=== PATIENT | female | born 1940 | race Hispanic/Latino ===

== ENCOUNTER → 2019-08-28 | Outpatient (CLI) | payer OTHER, MEDICARE ==
[~2019-08-28] MED LIST: AMLO10TA7 PO; ATOR20TA65 PO; GUAI-1211 PO; HONEY 1 APPL/ML TUBE TP ONE; METO100T14 PO; NAPR-1023 PO; SITA100T12 PO; VALS80TA30 PO; VIT D PO
[2019-08-28 16:32] VITALS: BP 132/51
[2019-08-28 16:44] LABS: CREATININE 2.4 mg/dL (0.5-1.5); CRP QUANTITATIVE 6.8 mg/L (0.00-9.0); POTASSIUM 4.6 mmol/L (3.5-5.1)
== END | disposition home or self-care (01) ==
LOC: WHH 13:14
PROVIDERS: ATTEND Family Medicine
DX: T81.31XA Disruption of external operation (surgical) wound, not elsewhere classified, initial encounter (principal); I25.10 Atherosclerotic heart disease of native coronary artery without angina pectoris; I10 Essential (primary) hypertension; E11.39 Type 2 diabetes mellitus with other diabetic ophthalmic complication; H42 Glaucoma in diseases classified elsewhere; E66.01 Morbid (severe) obesity due to excess calories; Z79.4 Long term (current) use of insulin; Y83.8 Other surgical procedures as the cause of abnormal reaction of the patient, or of later complication, without mention of misadventure at the time of the procedure; Y92.89 Other specified places as the place of occurrence of the external cause
CPT/HCPCS: 11042; 11045; 36415; 80048; 84134; 85651; 86140; 87070; 87077; 87186

== ENCOUNTER → 2019-09-04 | Outpatient (CLI) | payer OTHER, MEDICARE ==
[~2019-09-04] MED LIST changes: -HONEY 1 APPL/ML TUBE TP ONE; +LIDOCAINE HCL 4% LTA SOL 4 ML VIAL TP ONE
[2019-09-04 16:16] VITALS: BP 113/48
== END | disposition home or self-care (01) ==
LOC: WHH 14:00
PROVIDERS: ATTEND Family Medicine
DX: T81.31XD Disruption of external operation (surgical) wound, not elsewhere classified, subsequent encounter (principal); E11.39 Type 2 diabetes mellitus with other diabetic ophthalmic complication; H42 Glaucoma in diseases classified elsewhere; I25.10 Atherosclerotic heart disease of native coronary artery without angina pectoris; I10 Essential (primary) hypertension; E66.01 Morbid (severe) obesity due to excess calories; Z79.4 Long term (current) use of insulin; Y83.8 Other surgical procedures as the cause of abnormal reaction of the patient, or of later complication, without mention of misadventure at the time of the procedure
CPT/HCPCS: 11042; 11045

== ENCOUNTER → 2019-09-18 | Outpatient (CLI) | payer OTHER, MEDICARE ==
[~2019-09-18] MED LIST changes: +HONEY 1 APPL/ML TUBE TP ONE
[2019-09-18 15:25] VITALS: BP 142/89
== END | disposition home or self-care (01) ==
LOC: WHH 13:00
PROVIDERS: ATTEND Family Medicine
DX: T81.31XD Disruption of external operation (surgical) wound, not elsewhere classified, subsequent encounter (principal); E11.22 Type 2 diabetes mellitus with diabetic chronic kidney disease; I12.9 Hypertensive chronic kidney disease with stage 1 through stage 4 chronic kidney disease, or unspecified chronic kidney disease; N18.9 Chronic kidney disease, unspecified; E11.39 Type 2 diabetes mellitus with other diabetic ophthalmic complication; H42 Glaucoma in diseases classified elsewhere; I25.10 Atherosclerotic heart disease of native coronary artery without angina pectoris; E66.01 Morbid (severe) obesity due to excess calories; J90 Pleural effusion, not elsewhere classified; Z79.4 Long term (current) use of insulin; Y83.8 Other surgical procedures as the cause of abnormal reaction of the patient, or of later complication, without mention of misadventure at the time of the procedure
CPT/HCPCS: 11042; 11045

== ENCOUNTER → 2019-09-25 | Outpatient (CLI) | payer OTHER, MEDICARE ==
[~2019-09-25] MED LIST changes: +AMLO-258 PO; -AMLO10TA7 PO; -HONEY 1 APPL/ML TUBE TP ONE; +SILVER NITRATE APPLICATOR 1 SWAB TP ONE
[2019-09-25 15:13] VITALS: BP 92/46
== END | disposition home or self-care (01) ==
LOC: WHH 13:00
PROVIDERS: ATTEND Family Medicine
DX: T81.31XD Disruption of external operation (surgical) wound, not elsewhere classified, subsequent encounter (principal); E11.22 Type 2 diabetes mellitus with diabetic chronic kidney disease; I13.0 Hypertensive heart and chronic kidney disease with heart failure and stage 1 through stage 4 chronic kidney disease, or unspecified chronic kidney disease; N18.9 Chronic kidney disease, unspecified; I50.9 Heart failure, unspecified; E11.39 Type 2 diabetes mellitus with other diabetic ophthalmic complication; H42 Glaucoma in diseases classified elsewhere; E11.51 Type 2 diabetes mellitus with diabetic peripheral angiopathy without gangrene; E66.01 Morbid (severe) obesity due to excess calories; I25.10 Atherosclerotic heart disease of native coronary artery without angina pectoris; J90 Pleural effusion, not elsewhere classified; N39.0 Urinary tract infection, site not specified; Z79.4 Long term (current) use of insulin; Y83.8 Other surgical procedures as the cause of abnormal reaction of the patient, or of later complication, without mention of misadventure at the time of the procedure
CPT/HCPCS: 11042; 11045; 71046; 97605

== ENCOUNTER → 2019-10-09 | Outpatient (CLI) | payer OTHER, MEDICARE ==
[~2019-10-09] MED LIST changes: -SILVER NITRATE APPLICATOR 1 SWAB TP ONE
[2019-10-09 15:45] VITALS: BP 125/72
== END | disposition home or self-care (01) ==
LOC: WHH 13:00
PROVIDERS: ATTEND Family Medicine
DX: T81.31XD Disruption of external operation (surgical) wound, not elsewhere classified, subsequent encounter (principal); E11.22 Type 2 diabetes mellitus with diabetic chronic kidney disease; I13.0 Hypertensive heart and chronic kidney disease with heart failure and stage 1 through stage 4 chronic kidney disease, or unspecified chronic kidney disease; N18.9 Chronic kidney disease, unspecified; I50.9 Heart failure, unspecified; E11.39 Type 2 diabetes mellitus with other diabetic ophthalmic complication; H42 Glaucoma in diseases classified elsewhere; E11.51 Type 2 diabetes mellitus with diabetic peripheral angiopathy without gangrene; E66.01 Morbid (severe) obesity due to excess calories; I25.10 Atherosclerotic heart disease of native coronary artery without angina pectoris; J90 Pleural effusion, not elsewhere classified; N39.0 Urinary tract infection, site not specified; Z79.4 Long term (current) use of insulin; Y83.8 Other surgical procedures as the cause of abnormal reaction of the patient, or of later complication, without mention of misadventure at the time of the procedure
CPT/HCPCS: 11042; 11045; 97605

== ENCOUNTER → 2019-10-16 | Outpatient (CLI) | payer OTHER, MEDICARE ==
[~2019-10-16] MED LIST changes: -AMLO-258 PO; +AMLO10TA7 PO; -LIDOCAINE HCL 4% LTA SOL 4 ML VIAL TP ONE
[2019-10-16 15:26] VITALS: BP 110/48
== END | disposition home or self-care (01) ==
LOC: WHH 13:00
PROVIDERS: ATTEND Family Medicine
DX: T81.31XD Disruption of external operation (surgical) wound, not elsewhere classified, subsequent encounter (principal); E11.22 Type 2 diabetes mellitus with diabetic chronic kidney disease; I13.0 Hypertensive heart and chronic kidney disease with heart failure and stage 1 through stage 4 chronic kidney disease, or unspecified chronic kidney disease; N18.9 Chronic kidney disease, unspecified; I50.9 Heart failure, unspecified; E11.39 Type 2 diabetes mellitus with other diabetic ophthalmic complication; H42 Glaucoma in diseases classified elsewhere; E11.51 Type 2 diabetes mellitus with diabetic peripheral angiopathy without gangrene; I25.10 Atherosclerotic heart disease of native coronary artery without angina pectoris; E66.01 Morbid (severe) obesity due to excess calories; Z79.4 Long term (current) use of insulin; Y83.8 Other surgical procedures as the cause of abnormal reaction of the patient, or of later complication, without mention of misadventure at the time of the procedure
CPT/HCPCS: 11042; 11045; 97605

== ENCOUNTER → 2019-10-23 | Outpatient (CLI) | payer OTHER, MEDICARE ==
[~2019-10-23] MED LIST changes: +LIDOCAINE HCL 4% LTA SOL 4 ML VIAL TP ONE
[2019-10-23 15:06] VITALS: BP 118/63
== END | disposition home or self-care (01) ==
LOC: WHH 13:00
PROVIDERS: ATTEND Family Medicine
DX: T81.31XD Disruption of external operation (surgical) wound, not elsewhere classified, subsequent encounter (principal); E11.22 Type 2 diabetes mellitus with diabetic chronic kidney disease; I13.0 Hypertensive heart and chronic kidney disease with heart failure and stage 1 through stage 4 chronic kidney disease, or unspecified chronic kidney disease; N18.9 Chronic kidney disease, unspecified; I50.9 Heart failure, unspecified; E11.39 Type 2 diabetes mellitus with other diabetic ophthalmic complication; H42 Glaucoma in diseases classified elsewhere; E11.51 Type 2 diabetes mellitus with diabetic peripheral angiopathy without gangrene; I25.10 Atherosclerotic heart disease of native coronary artery without angina pectoris; E66.01 Morbid (severe) obesity due to excess calories; J90 Pleural effusion, not elsewhere classified; Z79.4 Long term (current) use of insulin; Y83.8 Other surgical procedures as the cause of abnormal reaction of the patient, or of later complication, without mention of misadventure at the time of the procedure
CPT/HCPCS: 11042; 11045; 97605

== ENCOUNTER → 2019-11-06 | Outpatient (CLI) | payer OTHER, MEDICARE ==
[~2019-11-06] MED LIST changes: +AMLO-258 PO; -AMLO10TA7 PO
[2019-11-06 15:13] VITALS: BP 113/57
== END | disposition home or self-care (01) ==
LOC: WHH 13:00
PROVIDERS: ATTEND Family Medicine
DX: T81.89XD Other complications of procedures, not elsewhere classified, subsequent encounter (principal); E11.22 Type 2 diabetes mellitus with diabetic chronic kidney disease; I13.0 Hypertensive heart and chronic kidney disease with heart failure and stage 1 through stage 4 chronic kidney disease, or unspecified chronic kidney disease; N18.9 Chronic kidney disease, unspecified; I50.9 Heart failure, unspecified; E11.39 Type 2 diabetes mellitus with other diabetic ophthalmic complication; H42 Glaucoma in diseases classified elsewhere; E11.51 Type 2 diabetes mellitus with diabetic peripheral angiopathy without gangrene; I25.10 Atherosclerotic heart disease of native coronary artery without angina pectoris; E66.01 Morbid (severe) obesity due to excess calories; Z79.4 Long term (current) use of insulin; Y83.8 Other surgical procedures as the cause of abnormal reaction of the patient, or of later complication, without mention of misadventure at the time of the procedure
CPT/HCPCS: 11042; 11045; 97605

== ENCOUNTER → 2019-11-20 | Outpatient (CLI) | payer OTHER, MEDICARE ==
[~2019-11-20] MED LIST changes: -AMLO-258 PO; +AMLO10TA7 PO; -LIDOCAINE HCL 4% LTA SOL 4 ML VIAL TP ONE
[2019-11-20 16:39] VITALS: BP 131/52
== END | disposition home or self-care (01) ==
LOC: WHH 13:00
PROVIDERS: ATTEND Family Medicine
DX: T81.89XD Other complications of procedures, not elsewhere classified, subsequent encounter (principal); E11.22 Type 2 diabetes mellitus with diabetic chronic kidney disease; I13.0 Hypertensive heart and chronic kidney disease with heart failure and stage 1 through stage 4 chronic kidney disease, or unspecified chronic kidney disease; N18.9 Chronic kidney disease, unspecified; I50.9 Heart failure, unspecified; E11.39 Type 2 diabetes mellitus with other diabetic ophthalmic complication; H42 Glaucoma in diseases classified elsewhere; E11.51 Type 2 diabetes mellitus with diabetic peripheral angiopathy without gangrene; I25.10 Atherosclerotic heart disease of native coronary artery without angina pectoris; E66.01 Morbid (severe) obesity due to excess calories; Z79.4 Long term (current) use of insulin; Y83.8 Other surgical procedures as the cause of abnormal reaction of the patient, or of later complication, without mention of misadventure at the time of the procedure
CPT/HCPCS: 11042; 97605

== ENCOUNTER → 2019-11-23 | Outpatient (CLI) | payer OTHER, MEDICARE | END | disposition home or self-care (01) | LOC: WHH 10:39 | PROVIDERS: ATTEND Family Medicine | DX: T81.89XD Other complications of procedures, not elsewhere classified, subsequent encounter (principal); E11.22 Type 2 diabetes mellitus with diabetic chronic kidney disease; I13.0 Hypertensive heart and chronic kidney disease with heart failure and stage 1 through stage 4 chronic kidney disease, or unspecified chronic kidney disease; N18.9 Chronic kidney disease, unspecified; I50.9 Heart failure, unspecified; E11.39 Type 2 diabetes mellitus with other diabetic ophthalmic complication; H42 Glaucoma in diseases classified elsewhere; E11.51 Type 2 diabetes mellitus with diabetic peripheral angiopathy without gangrene; I25.10 Atherosclerotic heart disease of native coronary artery without angina pectoris; E66.01 Morbid (severe) obesity due to excess calories; Z79.4 Long term (current) use of insulin; Y83.8 Other surgical procedures as the cause of abnormal reaction of the patient, or of later complication, without mention of misadventure at the time of the procedure | CPT/HCPCS: 97605; G0463 ==

== ENCOUNTER → 2019-11-27 | Outpatient (CLI) | payer OTHER, MEDICARE ==
[~2019-11-27] MED LIST changes: +AMLO-258 PO; -AMLO10TA7 PO
[2019-11-27 16:30] VITALS: BP 131/45
== END | disposition home or self-care (01) ==
LOC: WHH 13:45
PROVIDERS: ATTEND Family Medicine
DX: T81.31XD Disruption of external operation (surgical) wound, not elsewhere classified, subsequent encounter (principal); E11.22 Type 2 diabetes mellitus with diabetic chronic kidney disease; I13.0 Hypertensive heart and chronic kidney disease with heart failure and stage 1 through stage 4 chronic kidney disease, or unspecified chronic kidney disease; N18.9 Chronic kidney disease, unspecified; I50.9 Heart failure, unspecified; E11.51 Type 2 diabetes mellitus with diabetic peripheral angiopathy without gangrene; E11.36 Type 2 diabetes mellitus with diabetic cataract; I25.10 Atherosclerotic heart disease of native coronary artery without angina pectoris; E66.01 Morbid (severe) obesity due to excess calories; J90 Pleural effusion, not elsewhere classified; Z79.4 Long term (current) use of insulin; Y83.8 Other surgical procedures as the cause of abnormal reaction of the patient, or of later complication, without mention of misadventure at the time of the procedure
CPT/HCPCS: 15271; 82948; A6197; A6207; Q4133 ×2

== ENCOUNTER → 2019-11-28 | Outpatient (CLI) | payer OTHER, MEDICARE | END | disposition home or self-care (01) | LOC: RAH 12:26 | PROVIDERS: ATTEND Thoracic Surgery (Cardiothoracic Vascular Surgery) | DX: T81.32XA Disruption of internal operation (surgical) wound, not elsewhere classified, initial encounter (principal); I25.10 Atherosclerotic heart disease of native coronary artery without angina pectoris; J90 Pleural effusion, not elsewhere classified; J98.11 Atelectasis; I35.8 Other nonrheumatic aortic valve disorders; R60.9 Edema, unspecified; K80.20 Calculus of gallbladder without cholecystitis without obstruction; D73.89 Other diseases of spleen; J98.51 Mediastinitis; D71 Functional disorders of polymorphonuclear neutrophils; X58.XXXA Exposure to other specified factors, initial encounter; Y93.89 Activity, other specified; Y92.89 Other specified places as the place of occurrence of the external cause; Y99.8 Other external cause status | CPT/HCPCS: 71250 ==

== ENCOUNTER → 2019-12-04 | Outpatient (CLI) | payer OTHER, MEDICARE ==
[2019-12-04 16:00] VITALS: BP 124/41
== END | disposition home or self-care (01) ==
LOC: WHH 13:30
PROVIDERS: ATTEND Family Medicine
DX: T81.31XD Disruption of external operation (surgical) wound, not elsewhere classified, subsequent encounter (principal); E11.22 Type 2 diabetes mellitus with diabetic chronic kidney disease; I13.0 Hypertensive heart and chronic kidney disease with heart failure and stage 1 through stage 4 chronic kidney disease, or unspecified chronic kidney disease; N18.9 Chronic kidney disease, unspecified; I50.9 Heart failure, unspecified; E11.51 Type 2 diabetes mellitus with diabetic peripheral angiopathy without gangrene; E11.36 Type 2 diabetes mellitus with diabetic cataract; I25.10 Atherosclerotic heart disease of native coronary artery without angina pectoris; J90 Pleural effusion, not elsewhere classified; Z79.4 Long term (current) use of insulin; Y83.8 Other surgical procedures as the cause of abnormal reaction of the patient, or of later complication, without mention of misadventure at the time of the procedure
CPT/HCPCS: 15271; A6197; A6207; Q4133

== ENCOUNTER → 2019-12-11 | Outpatient (CLI) | payer OTHER, MEDICARE ==
[2019-12-11 14:32] VITALS: BP 114/42; PULSE 52; RESP 18; TEMP 98.2
== END | disposition home or self-care (01) ==
LOC: WHH 13:00
PROVIDERS: ATTEND Family Medicine
DX: T81.31XD Disruption of external operation (surgical) wound, not elsewhere classified, subsequent encounter (principal); E11.22 Type 2 diabetes mellitus with diabetic chronic kidney disease; I13.0 Hypertensive heart and chronic kidney disease with heart failure and stage 1 through stage 4 chronic kidney disease, or unspecified chronic kidney disease; N18.9 Chronic kidney disease, unspecified; I50.9 Heart failure, unspecified; E11.39 Type 2 diabetes mellitus with other diabetic ophthalmic complication; H42 Glaucoma in diseases classified elsewhere; E11.51 Type 2 diabetes mellitus with diabetic peripheral angiopathy without gangrene; I25.10 Atherosclerotic heart disease of native coronary artery without angina pectoris; E66.01 Morbid (severe) obesity due to excess calories; Z79.4 Long term (current) use of insulin; Y83.8 Other surgical procedures as the cause of abnormal reaction of the patient, or of later complication, without mention of misadventure at the time of the procedure
CPT/HCPCS: 11042; A6197

== ENCOUNTER → 2019-12-18 | Outpatient (CLI) | payer OTHER, MEDICARE | END | disposition home or self-care (01) | LOC: WHH 13:00 | PROVIDERS: ATTEND Family Medicine | DX: T86.828 Other complications of skin graft (allograft) (autograft) (principal); E11.22 Type 2 diabetes mellitus with diabetic chronic kidney disease; I13.0 Hypertensive heart and chronic kidney disease with heart failure and stage 1 through stage 4 chronic kidney disease, or unspecified chronic kidney disease; N18.9 Chronic kidney disease, unspecified; I50.9 Heart failure, unspecified; E11.39 Type 2 diabetes mellitus with other diabetic ophthalmic complication; H42 Glaucoma in diseases classified elsewhere; E11.51 Type 2 diabetes mellitus with diabetic peripheral angiopathy without gangrene; I25.10 Atherosclerotic heart disease of native coronary artery without angina pectoris; E66.01 Morbid (severe) obesity due to excess calories; J90 Pleural effusion, not elsewhere classified; Z68.41 Body mass index [BMI] 40.0-44.9, adult; Z79.4 Long term (current) use of insulin; Z95.1 Presence of aortocoronary bypass graft; Y83.2 Surgical operation with anastomosis, bypass or graft as the cause of abnormal reaction of the patient, or of later complication, without mention of misadventure at the time of the procedure | CPT/HCPCS: 15271; A6197; A6207; Q4133 ==

== ENCOUNTER → 2019-12-25 | Outpatient (CLI) | payer OTHER, MEDICARE ==
[~2019-12-25] MED LIST changes: +LIDOCAINE HCL 4% LTA SOL 4 ML VIAL TP ONE
== END | disposition home or self-care (01) ==
LOC: WHH 13:10
PROVIDERS: ATTEND Family Medicine
DX: T86.828 Other complications of skin graft (allograft) (autograft) (principal); E11.22 Type 2 diabetes mellitus with diabetic chronic kidney disease; I13.0 Hypertensive heart and chronic kidney disease with heart failure and stage 1 through stage 4 chronic kidney disease, or unspecified chronic kidney disease; N18.9 Chronic kidney disease, unspecified; I50.9 Heart failure, unspecified; E11.39 Type 2 diabetes mellitus with other diabetic ophthalmic complication; H42 Glaucoma in diseases classified elsewhere; E11.51 Type 2 diabetes mellitus with diabetic peripheral angiopathy without gangrene; E11.36 Type 2 diabetes mellitus with diabetic cataract; H26.9 Unspecified cataract; I25.10 Atherosclerotic heart disease of native coronary artery without angina pectoris; E66.01 Morbid (severe) obesity due to excess calories; Z68.41 Body mass index [BMI] 40.0-44.9, adult; Z79.4 Long term (current) use of insulin; Z95.1 Presence of aortocoronary bypass graft; Y83.2 Surgical operation with anastomosis, bypass or graft as the cause of abnormal reaction of the patient, or of later complication, without mention of misadventure at the time of the procedure
CPT/HCPCS: 15271; A6197; A6207; Q4133

== ENCOUNTER → 2020-01-01 | Outpatient (CLI) | payer OTHER, MEDICARE ==
[~2020-01-01] MED LIST changes: -AMLO-258 PO; +AMLO10TA7 PO
== END | disposition home or self-care (01) ==
LOC: WHH 13:00
PROVIDERS: ATTEND Family Medicine
DX: T86.828 Other complications of skin graft (allograft) (autograft) (principal); E11.22 Type 2 diabetes mellitus with diabetic chronic kidney disease; I13.0 Hypertensive heart and chronic kidney disease with heart failure and stage 1 through stage 4 chronic kidney disease, or unspecified chronic kidney disease; N18.9 Chronic kidney disease, unspecified; I50.9 Heart failure, unspecified; E11.39 Type 2 diabetes mellitus with other diabetic ophthalmic complication; H42 Glaucoma in diseases classified elsewhere; E11.51 Type 2 diabetes mellitus with diabetic peripheral angiopathy without gangrene; E11.36 Type 2 diabetes mellitus with diabetic cataract; H26.9 Unspecified cataract; I25.10 Atherosclerotic heart disease of native coronary artery without angina pectoris; E66.01 Morbid (severe) obesity due to excess calories; Z68.41 Body mass index [BMI] 40.0-44.9, adult; Z79.4 Long term (current) use of insulin; Z95.1 Presence of aortocoronary bypass graft; Y83.2 Surgical operation with anastomosis, bypass or graft as the cause of abnormal reaction of the patient, or of later complication, without mention of misadventure at the time of the procedure
CPT/HCPCS: 15271; A6196; A6207; Q4133

== ENCOUNTER → 2020-01-08 | Outpatient (CLI) | payer OTHER, MEDICARE | END | disposition home or self-care (01) | LOC: WHH 13:00 | PROVIDERS: ATTEND Family Medicine | DX: T86.828 Other complications of skin graft (allograft) (autograft) (principal); E11.22 Type 2 diabetes mellitus with diabetic chronic kidney disease; I13.0 Hypertensive heart and chronic kidney disease with heart failure and stage 1 through stage 4 chronic kidney disease, or unspecified chronic kidney disease; N18.9 Chronic kidney disease, unspecified; I50.9 Heart failure, unspecified; E11.39 Type 2 diabetes mellitus with other diabetic ophthalmic complication; H42 Glaucoma in diseases classified elsewhere; E11.51 Type 2 diabetes mellitus with diabetic peripheral angiopathy without gangrene; E11.36 Type 2 diabetes mellitus with diabetic cataract; H26.9 Unspecified cataract; I25.10 Atherosclerotic heart disease of native coronary artery without angina pectoris; E66.01 Morbid (severe) obesity due to excess calories; Z68.41 Body mass index [BMI] 40.0-44.9, adult; Z79.4 Long term (current) use of insulin; Z95.1 Presence of aortocoronary bypass graft; Y83.2 Surgical operation with anastomosis, bypass or graft as the cause of abnormal reaction of the patient, or of later complication, without mention of misadventure at the time of the procedure | CPT/HCPCS: 15271; A6196; A6207; Q4133 ==

== ENCOUNTER → 2020-01-15 | Outpatient (CLI) | payer OTHER, MEDICARE | END | disposition home or self-care (01) | LOC: WHH 13:00 | PROVIDERS: ATTEND Family Medicine | DX: T81.31XD Disruption of external operation (surgical) wound, not elsewhere classified, subsequent encounter (principal); E11.22 Type 2 diabetes mellitus with diabetic chronic kidney disease; I13.0 Hypertensive heart and chronic kidney disease with heart failure and stage 1 through stage 4 chronic kidney disease, or unspecified chronic kidney disease; N18.9 Chronic kidney disease, unspecified; I50.9 Heart failure, unspecified; E11.39 Type 2 diabetes mellitus with other diabetic ophthalmic complication; H42 Glaucoma in diseases classified elsewhere; E11.51 Type 2 diabetes mellitus with diabetic peripheral angiopathy without gangrene; E11.36 Type 2 diabetes mellitus with diabetic cataract; H26.9 Unspecified cataract; I25.10 Atherosclerotic heart disease of native coronary artery without angina pectoris; E66.01 Morbid (severe) obesity due to excess calories; Z68.41 Body mass index [BMI] 40.0-44.9, adult; Z79.4 Long term (current) use of insulin; Z95.1 Presence of aortocoronary bypass graft; Y83.8 Other surgical procedures as the cause of abnormal reaction of the patient, or of later complication, without mention of misadventure at the time of the procedure | CPT/HCPCS: A6209; G0463 ==

== ENCOUNTER 2020-01-29 13:00 | Outpatient (CLI) | payer OTHER, MEDICARE ==
[~2020-01-29 13:00] MED LIST changes: -LIDOCAINE HCL 4% LTA SOL 4 ML VIAL TP ONE
== END 2020-01-29 13:59 | disposition home or self-care (01) ==
LOC: WHH 13:00
PROVIDERS: ATTEND Family Medicine
DX: T81.31XD Disruption of external operation (surgical) wound, not elsewhere classified, subsequent encounter (principal); E11.22 Type 2 diabetes mellitus with diabetic chronic kidney disease; I13.0 Hypertensive heart and chronic kidney disease with heart failure and stage 1 through stage 4 chronic kidney disease, or unspecified chronic kidney disease; N18.9 Chronic kidney disease, unspecified; I50.9 Heart failure, unspecified; E11.39 Type 2 diabetes mellitus with other diabetic ophthalmic complication; H42 Glaucoma in diseases classified elsewhere; E11.51 Type 2 diabetes mellitus with diabetic peripheral angiopathy without gangrene; E11.36 Type 2 diabetes mellitus with diabetic cataract; H26.9 Unspecified cataract; I25.10 Atherosclerotic heart disease of native coronary artery without angina pectoris; E66.01 Morbid (severe) obesity due to excess calories; Z68.41 Body mass index [BMI] 40.0-44.9, adult; Z79.4 Long term (current) use of insulin; Z95.1 Presence of aortocoronary bypass graft; Y83.8 Other surgical procedures as the cause of abnormal reaction of the patient, or of later complication, without mention of misadventure at the time of the procedure
CPT/HCPCS: G0463

== ENCOUNTER → 2020-02-06 | Outpatient (CLI) | payer OTHER, MEDICARE | END | disposition home or self-care (01) | LOC: RAH 12:56 | PROVIDERS: ATTEND Thoracic Surgery (Cardiothoracic Vascular Surgery) | DX: T81.32XD Disruption of internal operation (surgical) wound, not elsewhere classified, subsequent encounter (principal); J90 Pleural effusion, not elsewhere classified; J98.11 Atelectasis; M47.814 Spondylosis without myelopathy or radiculopathy, thoracic region; K80.20 Calculus of gallbladder without cholecystitis without obstruction; Z95.1 Presence of aortocoronary bypass graft | CPT/HCPCS: 71250 ==

== ENCOUNTER 2021-05-05 13:40 | Inpatient (IN) | payer OTHER, MEDICARE ==
[~2021-05-05] VITALS: Ht 154.9 cm; Wt 95.3 kg
[~2021-05-05 13:40] MED LIST changes: +AMLO-258 PO; -AMLO10TA7 PO
[2021-05-05] MEDS ORDERED: KCL 20 MEQ ERTAB PO PRN (14:30)
[2021-05-05] MEDS ORDERED: DEXTROSE 50%-WATER 50 ML DISP.SYRIN IV PRN (14:30)
[2021-05-05] MEDS ORDERED: GLUCAGON 1MG KIT 1 MG ML IM PRN (14:30)
[2021-05-05] MEDS ORDERED: LIDOCAINE HCL-MPF 1% 2ML VIAL IJ PRN (14:30)
[2021-05-05] MEDS ORDERED: POTASSIUM CHLORIDE 10% ELIXIR 20 MEQ/15 ML UDCUP PO PRN (14:30)
[2021-05-05] MEDS ORDERED: POTASSIUM CHLORIDE 20MEQ/100ML 100 ML IV PRN (14:30)
[2021-05-05] MEDS ORDERED: DiphenhydrAMINE HCL 50 MG/ML VIAL IV PRN (15:30)
[2021-05-05] MEDS ORDERED: NITROGLYCERIN 0.4 MG SL TAB SL PRN (15:30)
[2021-05-05] MEDS ORDERED: HYDRALAZINE 20MG/ML VIAL IV PRN (15:30)
[2021-05-05] MEDS ORDERED: ONDANSETRON 4MG INJ IV PRN (15:30)
[2021-05-05 16:57] LABS: BASOPHILS % (AUTO) 0.5 % (0.0-5.0); EOSINOPHILS % (AUTO) 2.6 % (0.0-8.0); HEMATOCRIT 39.5 % (36-48); LYMPHOCYTES % (AUTO) 18.7 % (21.0-51.0); MEAN CORPUSCULAR HEMOGLOBIN 28.7 pg (27.0-33.0); MEAN CORPUSCULAR HGB CONC 31.1 g/dL (32.0-36.0); MEAN CORPUSCULAR VOLUME 92.3 fL (79-99); MONOCYTES % (AUTO) 7.9 % (3.0-13.0); NEUTROPHILS % (AUTO) 70.1 % (40.0-77.0); PLATELET COUNT (AUTO) 178 K/uL (130-400); RED BLOOD CELL COUNT(AUTO) 4.28 MIL/uL (4.00-5.50); RED CELL DISTRIBUTION WIDTH 14.1 % (11.0-15.5); WHITE BLOOD COUNT (AUTO) 9.3 K/uL (4.8-10.8)
[2021-05-05] MEDS: INSULIN HUMULIN R 100 UNIT/ML 3ML SQ SCH (17:00)
[2021-05-05] MEDS: LACTATED RINGERS 1000ML 1,000 ML IV SCH (17:09)
[2021-05-05] MEDS: FAMOTIDINE 20MG VIAL IV SCH (17:09)
[2021-05-05 17:10] LABS: INR 1.17 (0.85-1.15); PROTHROMBIN TIME 12.6 SEC (9.6-11.6)
[2021-05-05 17:12] LABS: CREATININE 1.5 mg/dL (0.5-1.5)
[2021-05-05 17:14] LABS: ALBUMIN 3.3 g/dL (3.5-5.0); BILIRUBIN,TOTAL 0.5 mg/dL (0.2-1.0)
[2021-05-05] MEDS ORDERED: TORS20TA4 PO (17:42)
[2021-05-05] MEDS ORDERED: APIX5TAB PO (17:49)
[2021-05-05] MEDS ORDERED: VITAD50000 PO (17:49)
[2021-05-05] MEDS ORDERED: LATA2.5D14 OP (17:49)
[2021-05-05] MEDS ORDERED: ATOR20TA65 PO (17:49)
[2021-05-05] MEDS ORDERED: METO100T14 PO (17:49)
[2021-05-05] MEDS ORDERED: OLME20TA22 PO (17:49)
[2021-05-05] MEDS ORDERED: BRIM5DRO OP (17:49)
[2021-05-05] MEDS ORDERED: POTA-202 PO (17:49)
[2021-05-05] MEDS ORDERED: SERT-439 PO (17:49)
[2021-05-05] MEDS: INSULIN R NPO SSI SQ SCH (18:00)
[2021-05-05] MEDS ORDERED: NICARDIPINE 25MG INJ 25 MG in 0.9% NACL 250ML 240 ML IV SCH (18:30)
[2021-05-05] MEDS ORDERED: ACETAMINOPHEN 325 MG TAB PO PRN ×2 (21:30)
[2021-05-06] MEDS: LACTATED RINGERS 1000ML 1,000 ML IV SCH (05:52)
[2021-05-06 05:56] LABS: HEMATOCRIT 37.7 % (36-48); MEAN CORPUSCULAR HEMOGLOBIN 28.6 pg (27.0-33.0); MEAN CORPUSCULAR HGB CONC 30.8 g/dL (32.0-36.0); MEAN CORPUSCULAR VOLUME 92.9 fL (79-99); PLATELET COUNT (AUTO) 178 K/uL (130-400); RED BLOOD CELL COUNT(AUTO) 4.06 MIL/uL (4.00-5.50); RED CELL DISTRIBUTION WIDTH 14.2 % (11.0-15.5); WHITE BLOOD COUNT (AUTO) 8.8 K/uL (4.8-10.8)
[2021-05-06] MEDS: INSULIN R NPO SSI SQ SCH ×4 (06:00→18:00)
[2021-05-06 06:17] LABS: ALBUMIN 2.9 g/dL (3.5-5.0); BILIRUBIN,TOTAL 0.7 mg/dL (0.2-1.0); CREATININE 1.2 mg/dL (0.5-1.5); POTASSIUM 5.7 mmol/L (3.5-5.1); TOTAL PROTEIN, SERUM 8.2 g/dL (6.0-8.3)
[2021-05-06] MEDS: INSULIN HUMULIN R 100 UNIT/ML 3ML SQ SCH ×3 (06:26→17:00)
[2021-05-06] MEDS: FAMOTIDINE 20MG VIAL IV SCH (09:00)
[2021-05-06] MEDS ORDERED: LIDOCAINE HCL 400MG/20ML VIAL ONE (13:56)
[2021-05-06] MEDS ORDERED: SODIUM BICARB 50MEQ 50ML VIAL 50 ML ONE (14:03)
[2021-05-06 16:00] VITALS: BP 129/45
== END 2021-05-06 18:58 | disposition home or self-care (01) | DRG 641 ==
LOC: EDH 13:40 → EDHIP 13:41
PROVIDERS: ADMIT Internal Medicine; ATTEND Internal Medicine
PROC: 4A023N6 Measurement of Cardiac Sampling and Pressure, Right Heart, Percutaneous Approach (ICD-10-PCS; principal; 2021-05-06)
PROC: B2141ZZ Fluoroscopy of Right Heart using Low Osmolar Contrast (ICD-10-PCS; 2021-05-06)
DX: E86.0 Dehydration (principal); I50.32 Chronic diastolic (congestive) heart failure; I13.0 Hypertensive heart and chronic kidney disease with heart failure and stage 1 through stage 4 chronic kidney disease, or unspecified chronic kidney disease; I27.20 Pulmonary hypertension, unspecified; I95.1 Orthostatic hypotension; I48.0 Paroxysmal atrial fibrillation; E87.5 Hyperkalemia; Z20.822 Contact with and (suspected) exposure to COVID-19; E78.5 Hyperlipidemia, unspecified; M81.0 Age-related osteoporosis without current pathological fracture; N18.9 Chronic kidney disease, unspecified; E86.1 Hypovolemia; R29.6 Repeated falls; I25.10 Atherosclerotic heart disease of native coronary artery without angina pectoris; E11.22 Type 2 diabetes mellitus with diabetic chronic kidney disease; E66.9 Obesity, unspecified; Z96.653 Presence of artificial knee joint, bilateral; W19.XXXA Unspecified fall, initial encounter; Y93.89 Activity, other specified; Y92.89 Other specified places as the place of occurrence of the external cause; Y99.8 Other external cause status; Z68.39 Body mass index [BMI] 39.0-39.9, adult; Z95.1 Presence of aortocoronary bypass graft; Z79.01 Long term (current) use of anticoagulants; Z90.710 Acquired absence of both cervix and uterus; Z83.3 Family history of diabetes mellitus; Z82.49 Family history of ischemic heart disease and other diseases of the circulatory system
CPT/HCPCS: 36415; 70450; 71045; 80053; 82550; 82948; 83874; 84484; 85025; 85027; 85610; 85730; 87635; 93005; 93451; C1894; G0378; J0360; J1644; J2405; J3490; J7050; J7120

== ENCOUNTER → 2021-10-16 | Outpatient (CLI) | payer OTHER, MEDICARE ==
[~2021-10-16] MED LIST changes: -AMLO-258 PO; +APIX5TAB PO; +BRIM5DRO OP; -GUAI-1211 PO; +LATA2.5D14 OP; -NAPR-1023 PO; +OLME20TA22 PO; +POTA-202 PO; +SERT-439 PO; -SITA100T12 PO; +TORS20TA4 PO; -VALS80TA30 PO; -VIT D PO; +VITAD50000 PO
[2021-10-16 12:38] LABS: CREATININE 1.2 mg/dL (0.5-1.5); POTASSIUM 4.1 mmol/L (3.5-5.1)
== END | disposition home or self-care (01) ==
LOC: LAB 09:29
PROVIDERS: ATTEND Internal Medicine Cardiovascular Disease
DX: I11.0 Hypertensive heart disease with heart failure (principal); I50.32 Chronic diastolic (congestive) heart failure; Z79.899 Other long term (current) drug therapy
CPT/HCPCS: 36415; 80048; 82306; 83880

== ENCOUNTER → 2021-10-27 | Outpatient (CLI) | payer OTHER, MEDICARE | END | disposition home or self-care (01) | LOC: RAH 13:40 | PROVIDERS: ATTEND Internal Medicine Cardiovascular Disease | DX: I65.23 Occlusion and stenosis of bilateral carotid arteries (principal); I51.7 Cardiomegaly; I50.32 Chronic diastolic (congestive) heart failure; J90 Pleural effusion, not elsewhere classified; I73.9 Peripheral vascular disease, unspecified; Z98.890 Other specified postprocedural states | CPT/HCPCS: 71046; 93880 ==

== ENCOUNTER → 2021-11-10 | Outpatient (CLI) | payer OTHER, MEDICARE ==
[2021-11-10 12:41] LABS: CREATININE 1.3 mg/dL (0.5-1.5); POTASSIUM 4.3 mmol/L (3.5-5.1)
== END | disposition home or self-care (01) ==
LOC: LAB 09:38
PROVIDERS: ATTEND Internal Medicine Cardiovascular Disease
DX: I50.31 Acute diastolic (congestive) heart failure (principal)
CPT/HCPCS: 36415; 80048; 83880

== ENCOUNTER → 2022-05-31 | Outpatient (CLI) | payer OTHER, MEDICARE ==
[2022-05-31 12:15] LABS: CREATININE 2.4 mg/dL (0.5-1.5); MAGNESIUM 2.5 mg/dL (1.80-2.40); POTASSIUM 4.3 mmol/L (3.5-5.1)
== END | disposition home or self-care (01) ==
LOC: LAB 09:36
PROVIDERS: ATTEND Internal Medicine Cardiovascular Disease
DX: I50.32 Chronic diastolic (congestive) heart failure (principal)
CPT/HCPCS: 36415; 80048; 83735; 83880

== ENCOUNTER 2022-06-29 09:12 | Day surgery (SDC) | payer OTHER, MEDICARE ==
[2022-06-24 12:01] LABS: BASOPHILS % (AUTO) 0.7 % (0.0-5.0); EOSINOPHILS % (AUTO) 1.9 % (0.0-8.0); HEMATOCRIT 39.3 % (36-48); LYMPHOCYTES % (AUTO) 14.5 % (21.0-51.0); MEAN CORPUSCULAR HEMOGLOBIN 26.7 pg (27.0-33.0); MEAN CORPUSCULAR HGB CONC 30.8 g/dL (32.0-36.0); MEAN CORPUSCULAR VOLUME 86.8 fL (79-99); MONOCYTES % (AUTO) 8.7 % (3.0-13.0); NEUTROPHILS % (AUTO) 73.9 % (40.0-77.0); PLATELET COUNT (AUTO) 192 K/uL (130-400); RED BLOOD CELL COUNT(AUTO) 4.53 MIL/uL (4.00-5.50); RED CELL DISTRIBUTION WIDTH 15.9 % (11.0-15.5)
[2022-06-24 12:11] LABS: CREATININE 2.5 mg/dL (0.5-1.5); INR 1.21 (0.85-1.15)
[2022-06-24 12:12] LABS: PARTIAL THROMBOPLASTIN TIME 37.2 SEC (26.3-35.5)
[2022-06-24 12:28] LABS: APPEARANCE,URINE CLEAR (CLEAR); BILIRUBIN,URINE NEGATIVE (NEGATIVE); COLOR,URINE COLORLESS (YELLOW); GLUCOSE, URINE (UA) NEGATIVE (NEGATIVE); KETONES,URINE NEGATIVE (NEGATIVE); LEUKOCYTE ESTERASE ,URINE NEGATIVE Leu/uL (NEGATIVE); NITRATE,URINE NEGATIVE (NEGATIVE); OCCULT BLOOD,URINE NEGATIVE (NEGATIVE); PROTEIN,URINE NEGATIVE (NEGATIVE); UROBILINOGEN,URINE 0.2 mg/dL (0.2-1.0)
[2022-06-24 12:44] LABS: B-TYPE NATRIURETIC PEPTIDE 712 pg/mL (0-100)
[2022-06-24 15:49] VITALS: BP 132/43
[2022-06-29] VITALS (8 sets, daily range): BP systolic 110–164; BP diastolic 38–54
[~2022-06-29] VITALS: Ht 134.6 cm; Wt 86.1 kg
[~2022-06-29 09:12] MED LIST changes: +0.9% NACL 500ML IV.SOLN 500 ML IV SCH; +AEC81 PO; -ATOR20TA65 PO; +ATOR40TA69 PO; +GLIM1TAB18 PO; +HYDR25TA PO; +INSLAN SQ; -POTA-202 PO; +PYRI100L2 PO; -VITAD50000 PO
[2022-06-29] MEDS ORDERED: 0.9%NACL 1000ML 1,000 ML IV ONE (10:19)
[2022-06-29] MEDS ORDERED: SODIUM BICARB 50MEQ 50ML VIAL 50 ML ONE (11:29)
[2022-06-29] MEDS ORDERED: MIDAZOLAM HCL 1 MG/ML 2ML VIAL ONE (11:30)
[2022-06-29] MEDS ORDERED: LIDOCAINE HCL 400MG/20ML VIAL ONE (11:31)
[2022-06-29] MEDS ORDERED: FENTANYL CITRATE PF 50 MCG/1 ML 2ML VIAL ONE (11:31)
== END 2022-06-29 14:40 | disposition home or self-care (01) ==
LOC: DAH 09:12
PROVIDERS: ATTEND Internal Medicine Cardiovascular Disease
DX: I27.20 Pulmonary hypertension, unspecified (principal); E11.22 Type 2 diabetes mellitus with diabetic chronic kidney disease; I13.0 Hypertensive heart and chronic kidney disease with heart failure and stage 1 through stage 4 chronic kidney disease, or unspecified chronic kidney disease; N18.9 Chronic kidney disease, unspecified; I50.32 Chronic diastolic (congestive) heart failure; I35.0 Nonrheumatic aortic (valve) stenosis; E11.51 Type 2 diabetes mellitus with diabetic peripheral angiopathy without gangrene; I48.0 Paroxysmal atrial fibrillation; E78.5 Hyperlipidemia, unspecified; E66.01 Morbid (severe) obesity due to excess calories; M81.0 Age-related osteoporosis without current pathological fracture; K21.9 Gastro-esophageal reflux disease without esophagitis; D68.69 Other thrombophilia; Z79.01 Long term (current) use of anticoagulants; Z79.4 Long term (current) use of insulin; Z79.82 Long term (current) use of aspirin; Z79.899 Other long term (current) drug therapy; Z90.710 Acquired absence of both cervix and uterus; Z98.890 Other specified postprocedural states; Z82.3 Family history of stroke; Z68.36 Body mass index [BMI] 36.0-36.9, adult
CPT/HCPCS: 80048; 83880; 85025; 85610; 85730; 81003; 36415; 71045; 93005; 93451; 82948 ×2; C1894 ×2; J3010; J3490 ×2; J7030; J2250; J1644; A4215; A4222; A4221; A4663; A4216; A4606; A4223 ×3; 99156

== ENCOUNTER → 2022-12-13 | Outpatient (CLI) | payer OTHER, MEDICARE ==
[~2022-12-13] MED LIST changes: -0.9% NACL 500ML IV.SOLN 500 ML IV SCH
[2022-12-13 12:09] LABS: BASOPHILS % (AUTO) 0.7 % (0.0-5.0); EOSINOPHILS % (AUTO) 3.5 % (0.0-8.0); HEMATOCRIT 41.3 % (36-48); LYMPHOCYTES % (AUTO) 15.2 % (21.0-51.0); MEAN CORPUSCULAR HEMOGLOBIN 25.4 pg (27.0-33.0); MEAN CORPUSCULAR HGB CONC 28.6 g/dL (32.0-36.0); MEAN CORPUSCULAR VOLUME 88.8 fL (79-99); MONOCYTES % (AUTO) 7.4 % (3.0-13.0); NEUTROPHILS % (AUTO) 72.8 % (40.0-77.0); PLATELET COUNT (AUTO) 250 K/uL (130-400); RED BLOOD CELL COUNT(AUTO) 4.65 MIL/uL (4.00-5.50); RED CELL DISTRIBUTION WIDTH 17.2 % (11.0-15.5); WHITE BLOOD COUNT (AUTO) 9.2 K/uL (4.8-10.8)
[2022-12-13 12:33] LABS: ALBUMIN 2.1 g/dL (3.5-5.0); CREATININE 1.2 mg/dL (0.5-1.5); TOTAL PROTEIN, SERUM 7.8 g/dL (6.0-8.3)
[2022-12-13 13:18] LABS: POTASSIUM 2.7 mmol/L (3.5-5.1)
== END | disposition home or self-care (01) ==
LOC: LAB 09:09
PROVIDERS: ATTEND Internal Medicine Cardiovascular Disease
DX: I11.0 Hypertensive heart disease with heart failure (principal); I50.32 Chronic diastolic (congestive) heart failure; E78.2 Mixed hyperlipidemia
CPT/HCPCS: 36415; 80053; 80061; 83880; 85025

== ENCOUNTER → 2023-07-20 | Outpatient (CLI) | payer OTHER, MEDICARE ==
[~2023-07-20] MED LIST changes: -OLME20TA22 PO; +OLME20TA68 PO
== END | disposition home or self-care (01) ==
LOC: RAH 10:22
PROVIDERS: ATTEND Internal Medicine Cardiovascular Disease
DX: I51.7 Cardiomegaly (principal); R06.00 Dyspnea, unspecified
CPT/HCPCS: 71046

== ENCOUNTER → 2023-09-23 | Outpatient (CLI) | payer OTHER, MEDICARE | END | disposition home or self-care (01) | LOC: LAB 09:21 | PROVIDERS: ATTEND Internal Medicine Cardiovascular Disease | DX: I11.0 Hypertensive heart disease with heart failure (principal); I50.32 Chronic diastolic (congestive) heart failure; E78.5 Hyperlipidemia, unspecified | CPT/HCPCS: 36415; 83880 ==

== ENCOUNTER → 2023-10-20 | Outpatient (CLI) | payer OTHER, MEDICARE ==
[2023-10-20 12:20] LABS: CREATININE 1.4 mg/dL (0.5-1.0); POTASSIUM 4.4 mmol/L (3.5-5.1)
== END | disposition home or self-care (01) ==
LOC: LAB 09:07
PROVIDERS: ATTEND Internal Medicine Cardiovascular Disease
DX: D68.59 Other primary thrombophilia (principal); I48.19 Other persistent atrial fibrillation
CPT/HCPCS: 36415; 80048; 83880

== ENCOUNTER → 2023-12-16 | Outpatient (CLI) | payer OTHER, MEDICARE ==
[~2023-12-16] MED LIST changes: -GLIM1TAB18 PO; +GLIM1TAB56 PO
[2023-12-16 12:38] LABS: CREATININE 1.4 mg/dL (0.5-1.0); DIGOXIN 1.18 ng/mL (0.50-2.00); MAGNESIUM 2.3 mg/dL (1.80-2.40); POTASSIUM 4.5 mmol/L (3.5-5.1)
== END | disposition home or self-care (01) ==
LOC: LAB 10:57
PROVIDERS: ATTEND Internal Medicine Cardiovascular Disease
DX: I50.32 Chronic diastolic (congestive) heart failure (principal); I48.91 Unspecified atrial fibrillation; D68.59 Other primary thrombophilia
CPT/HCPCS: 36415; 80048; 80162; 83735; 83880